=== PATIENT | male | born 1965 | race African-American/Black ===

== ENCOUNTER 2021-11-10 19:36 | Inpatient (IN) | payer OTHER ==
[2021-11-10 20:02] VITALS: BMI 30.7
[2021-11-10] MEDS ORDERED: ACETAMINOPHEN 1000 MG/100 ML BAG IVPB ONE (20:48)
[2021-11-10] MEDS ORDERED: ACETAMINOPHEN INJECTION 100 ML IVPB ONE (21:01)
[2021-11-10 21:47] LABS: EPI CELLS 7 /uL (0-25.1); HYALINE CASTS 5 /uL (0-3.1); URINE APPEARANCE CLEAR; URINE BACTERIA 90 /uL (0-1359); URINE BILIRUBIN NEGATIVE (NEGATIVE); URINE COLOR YELLOW; URINE GLUCOSE (UA) 3+ (NEGATIVE); URINE KETONE NEGATIVE (NEGATIVE); URINE LEUK ESTERASE NEGATIVE (NEGATIVE); URINE NITRITE NEGATIVE (NEGATIVE); URINE PROTEIN 3+ (NEGATIVE); URINE RBC 5 /uL (0-23.9); URINE UROBILINOGEN 0.2 mg/dL (0.2-1.0); URINE WBC 7 /uL (0-25.8)
[2021-11-10 21:59] LABS: BASO % 0.8 % (0-2.0); HEMATOCRIT 41.1 % (35.4-49); HEMOGLOBIN 13.7 GM/dL (11.7-16.9); LYMPH % 9.2 % (8-40); MCH 28.3 pg (25.7-33.7); MCHC 33.4 g/dl (32.0-35.9); MEAN CELL VOLUME 84.7 fl (80-96); MEAN PLT VOLUME 7.9 fl (7.5-11.1); MONO % 15.8 % (3.8-10.2); NEUT % 74.2 % (42.8-82.8); PLATELET COUNT 206 10^3/uL (134-434); RBC 4.85 M/mm3 (4.00-5.60); RDW 16.6 % (11.9-15.9); WHITE BLOOD COUNT 7.7 K/mm3 (4.0-10.0)
[2021-11-10 22:13] LABS: CALCIUM 9.2 mg/dL (8.5-10.1)
[2021-11-10 22:15] LABS: ALBUMIN 3.7 g/dl (3.4-5.0); BLOOD UREA NITROGEN 21.7 mg/dL (7-18)
[2021-11-10 22:18] LABS: CREATININE 1.8 mg/dL (0.55-1.3)
[2021-11-10 22:19] LABS: BILIRUBIN,TOTAL 0.2 mg/dL (0.2-1); TOT PROT 7.7 g/dl (6.4-8.2)
[2021-11-11] MEDS ORDERED: SODIUM CHLORIDE 0.9% 500 ML INFUS.BAG IV ONE (01:22)
[2021-11-11 02:00] LABS: LACTIC ACID 2.8 mmol/L (0.4-2.0)
[2021-11-11] MEDS ORDERED: SODIUM CHLORIDE 1,000 ML IV SCH ×2 (02:30→02:59)
[2021-11-11 03:38] LABS: INR 1.69 (0.83-1.09); PROTHROMBIN TIME (PATIENT) 19.5 SEC (9.7-13.0)
[2021-11-11 04:01] LABS: LACTIC ACID 2.6 mmol/L (0.4-2.0)
[2021-11-11] MEDS ORDERED: SODIUM CHLORIDE 500 ML IV STA (04:08)
[2021-11-11] MEDS ORDERED: LEVOTHYROXINE NA 25 MCG TABLET (FP) ONE (05:59)
[2021-11-11] MEDS: LEVOTHYROXINE NA 25 MCG TABLET (FP) PO SCH (06:02)
[2021-11-11 06:53] LABS: BLOOD UREA NITROGEN 18.3 mg/dL (7-18); CALCIUM 7.9 mg/dL (8.5-10.1)
[2021-11-11 06:54] LABS: ALBUMIN 3.2 g/dl (3.4-5.0)
[2021-11-11 06:55] LABS: EOS % 0.3 % (0-4.5); HEMOGLOBIN 12.5 GM/dL (11.7-16.9); LYMPH % 21.5 % (8-40); MCH 27.5 pg (25.7-33.7); MCHC 32.1 g/dl (32.0-35.9); MEAN CELL VOLUME 85.6 fl (80-96); MEAN PLT VOLUME 8.2 fl (7.5-11.1); MONO % 15.4 % (3.8-10.2); NEUT % 61.8 % (42.8-82.8); PLATELET COUNT 189 10^3/uL (134-434); RBC 4.56 M/mm3 (4.00-5.60); RDW 16.7 % (11.9-15.9); WHITE BLOOD COUNT 5.6 K/mm3 (4.0-10.0)
[2021-11-11 06:56] LABS: CREATININE 1.5 mg/dL (0.55-1.3)
[2021-11-11 06:58] LABS: BILIRUBIN,TOTAL 0.2 mg/dL (0.2-1); TOT PROT 6.8 g/dl (6.4-8.2)
[2021-11-11 07:20] LABS: LACTIC ACID 2.7 mmol/L (0.4-2.0)
[2021-11-11] MEDS ORDERED: TAMSULOSIN HCL 0.4 MG CAP ONE ×2 (08:53→08:54)
[2021-11-11] MEDS: TAMSULOSIN HCL 0.4 MG CAP PO SCH (08:57)
[2021-11-11] MEDS ORDERED: ONDANSETRON 4 MG/2 ML VIAL IVPB PRN (09:49)
[2021-11-11] MEDS ORDERED: AMIODARONE HCL 200 MG TABLET PO SCH (10:00)
[2021-11-11] MEDS: BACLOFEN 10 MG TABLET (FP) PO SCH (11:00)
[2021-11-11] MEDS: APIXABAN 5 MG TABLET PO SCH ×2 (11:01→22:23)
[2021-11-11] MEDS: INSULIN (LEVEMIR) 100 UNITS/ML UNITS SQ SCH (11:05)
[2021-11-11 13:15] LABS: MAGNESIUM 1.7 mg/dL (1.8-2.4)
[2021-11-11 13:23] LABS: N-TERMINAL BNP 83.8 pg/ml (5-125)
[2021-11-11] MEDS ORDERED: POTASSIUM CHLORIDE TABS 20 MEQ TABLET.ER (FP) PO ONE ×2 (13:52→16:00)
[2021-11-11] MEDS ORDERED: MAGNESIUM OXIDE 400 MG TABLET (FP) PO ONE ×2 (13:52→16:00)
[2021-11-11] MEDS: SODIUM CHLORIDE 1,000 ML IV SCH (16:33)
[2021-11-11] MEDS ORDERED: POTASSIUM CHLORIDE ORAL LIQUID 20 MEQ/15 ML PO ONE (16:43)
[2021-11-12] MEDS ORDERED: INSULIN (NOVOLOG) ASPART 100 UNITS/ML 10ML VIAL SQ ONE (00:30)
[2021-11-12] MEDS: LEVOTHYROXINE NA 25 MCG TABLET (FP) PO SCH (06:18)
[2021-11-12] MEDS: SODIUM CHLORIDE 1,000 ML IV SCH ×2 (06:18→17:07)
[2021-11-12 08:11] LABS: BASO % 1.2 % (0-2.0); EOS % 1.9 % (0-4.5); HEMATOCRIT 39.2 % (35.4-49); HEMOGLOBIN 12.6 GM/dL (11.7-16.9); LYMPH % 41.1 % (8-40); MCH 27.3 pg (25.7-33.7); MCHC 32.1 g/dl (32.0-35.9); MEAN PLT VOLUME 8.1 fl (7.5-11.1); MONO % 15.3 % (3.8-10.2); NEUT % 40.5 % (42.8-82.8); PLATELET COUNT 188 10^3/uL (134-434); RBC 4.61 M/mm3 (4.00-5.60); RDW 16.6 % (11.9-15.9); WHITE BLOOD COUNT 3.5 K/mm3 (4.0-10.0)
[2021-11-12 08:31] LABS: ALBUMIN 2.9 g/dl (3.4-5.0); BLOOD UREA NITROGEN 10.4 mg/dL (7-18); CALCIUM 8.2 mg/dL (8.5-10.1)
[2021-11-12 08:34] LABS: CREATININE 1.1 mg/dL (0.55-1.3)
[2021-11-12 08:36] LABS: BILIRUBIN,TOTAL 0.2 mg/dL (0.2-1); TOT PROT 6.5 g/dl (6.4-8.2)
[2021-11-12] MEDS: BACLOFEN 10 MG TABLET (FP) PO SCH (09:51)
[2021-11-12] MEDS: APIXABAN 5 MG TABLET PO SCH ×2 (09:52→21:06)
[2021-11-12] MEDS: INSULIN (LEVEMIR) 100 UNITS/ML UNITS SQ SCH (09:52)
[2021-11-12] MEDS: TAMSULOSIN HCL 0.4 MG CAP PO SCH (09:52)
[2021-11-12] MEDS: INSULIN SLIDING SCALE (NOVOLOG) 1 VIAL SQ SCH ×2 (11:31→17:08)
[2021-11-13 01:07] LABS: FIBROSIS SCORE. 0.32 (0.00-0.21); HCV ALPHA 2 MACRO CHART 314 mg/dL (110-276); NECRO.INFLAM ACT.SCORE 0.92 (0.00-0.17); NECROINFLAM. ACTIVITY GRADE A3-Severe activity (.)
[2021-11-13] MEDS: SODIUM CHLORIDE 1,000 ML IV SCH ×2 (06:21→14:04)
[2021-11-13] MEDS: INSULIN SLIDING SCALE (NOVOLOG) 1 VIAL SQ SCH ×3 (06:22→15:42)
[2021-11-13] MEDS: LEVOTHYROXINE NA 25 MCG TABLET (FP) PO SCH (06:22)
[2021-11-13 07:23] LABS: BASO % 0.8 % (0-2.0); EOS % 2.9 % (0-4.5); HEMATOCRIT 36.9 % (35.4-49); HEMOGLOBIN 12.4 GM/dL (11.7-16.9); LYMPH % 54.1 % (8-40); MCH 28.1 pg (25.7-33.7); MCHC 33.6 g/dl (32.0-35.9); MEAN CELL VOLUME 83.7 fl (80-96); MEAN PLT VOLUME 7.8 fl (7.5-11.1); MONO % 11.5 % (3.8-10.2); NEUT % 30.7 % (42.8-82.8); PLATELET COUNT 178 10^3/uL (134-434); RBC 4.41 M/mm3 (4.00-5.60); RDW 16.9 % (11.9-15.9); WHITE BLOOD COUNT 3.2 K/mm3 (4.0-10.0)
[2021-11-13 07:43] LABS: CHLORIDE 104 mmol/L (98-107); SODIUM 135 mmol/L (136-145)
[2021-11-13 07:48] LABS: ALBUMIN 2.9 g/dl (3.4-5.0); ANION GAP 5 MMOL/L (8-16); BLOOD UREA NITROGEN 7.9 mg/dL (7-18); CALCIUM 8.2 mg/dL (8.5-10.1); CO2 27 mmol/L (21-32); GLUCOSE,RANDOM 218 mg/dL (74-106)
[2021-11-13 07:52] LABS: BILIRUBIN,TOTAL 0.4 mg/dL (0.2-1); SGOT/AST 110 U/L (15-37); SGPT/ALT 230 U/L (13-61); TOT PROT 6.3 g/dl (6.4-8.2)
[2021-11-13 07:54] LABS: ALK PHOS 119 U/L (45-117)
[2021-11-13] MEDS: APIXABAN 5 MG TABLET PO SCH ×2 (09:44→21:16)
[2021-11-13] MEDS: BACLOFEN 10 MG TABLET (FP) PO SCH (09:44)
[2021-11-13] MEDS: INSULIN (LEVEMIR) 100 UNITS/ML UNITS SQ SCH (09:45)
[2021-11-13] MEDS: TAMSULOSIN HCL 0.4 MG CAP PO SCH (09:53)
[2021-11-13] MEDS ORDERED: INSULIN (NOVOLOG) ASPART 100 UNITS/ML 10ML VIAL ONE (21:21)
[2021-11-14] MEDS: SODIUM CHLORIDE 1,000 ML IV SCH ×2 (02:20→16:07)
[2021-11-14] MEDS: LEVOTHYROXINE NA 25 MCG TABLET (FP) PO SCH (06:05)
[2021-11-14] MEDS: INSULIN SLIDING SCALE (NOVOLOG) 1 VIAL SQ SCH ×3 (06:05→16:15)
[2021-11-14 08:55] LABS: INR 1.22 (0.83-1.09); PROTHROMBIN TIME (PATIENT) 14.1 SEC (9.7-13.0)
[2021-11-14 08:58] LABS: BASO % 0.7 % (0-2.0); EOS % 2.3 % (0-4.5); HEMATOCRIT 41.7 % (35.4-49); HEMOGLOBIN 13.6 GM/dL (11.7-16.9); MCH 27.6 pg (25.7-33.7); MCHC 32.7 g/dl (32.0-35.9); MEAN CELL VOLUME 84.5 fl (80-96); MEAN PLT VOLUME 8.2 fl (7.5-11.1); MONO % 11.4 % (3.8-10.2); NEUT % 36.6 % (42.8-82.8); PLATELET COUNT 215 10^3/uL (134-434); RBC 4.93 M/mm3 (4.00-5.60); RDW 16.6 % (11.9-15.9); WHITE BLOOD COUNT 4.5 K/mm3 (4.0-10.0)
[2021-11-14 09:16] LABS: ALBUMIN 3.2 g/dl (3.4-5.0); BLOOD UREA NITROGEN 11.1 mg/dL (7-18); CALCIUM 8.6 mg/dL (8.5-10.1)
[2021-11-14 09:19] LABS: BILIRUBIN,DIRECT 0.1 mg/dL (0.0-0.2)
[2021-11-14 09:21] LABS: CREATININE 1.1 mg/dL (0.55-1.3)
[2021-11-14 09:23] LABS: BILIRUBIN,TOTAL 0.5 mg/dL (0.2-1); TOT PROT 7.2 g/dl (6.4-8.2)
[2021-11-14] MEDS: TAMSULOSIN HCL 0.4 MG CAP PO SCH (10:28)
[2021-11-14] MEDS: INSULIN (LEVEMIR) 100 UNITS/ML UNITS SQ SCH (10:28)
[2021-11-14] MEDS: APIXABAN 5 MG TABLET PO SCH (10:28)
[2021-11-14] MEDS: BACLOFEN 10 MG TABLET (FP) PO SCH (10:28)
[2021-11-14 14:00] VITALS: BP 128/77; PULSE 74; TEMP 98.2
== END 2021-11-14 16:30 | disposition home or self-care (01) | DRG 683 ==
LOC: JER 19:36 → JERBED 11-11 01:54 → J7W 11-11 09:14
PROVIDERS: ADMIT Internal Medicine; ATTEND Internal Medicine
DX: N17.9 Acute kidney failure, unspecified (principal); E87.2 Acidosis; M62.82 Rhabdomyolysis; I48.91 Unspecified atrial fibrillation; I10 Essential (primary) hypertension; E87.6 Hypokalemia; E11.9 Type 2 diabetes mellitus without complications; N40.0 Benign prostatic hyperplasia without lower urinary tract symptoms; E66.9 Obesity, unspecified; K76.0 Fatty (change of) liver, not elsewhere classified; Z68.30 Body mass index [BMI] 30.0-30.9, adult; R74.01 Elevation of levels of liver transaminase levels
CPT/HCPCS: 36415; 71045-TC-FY; 72131-TC; 76705-TC; 76775-TC; 80048; 80053; 80076; 81003; 82172; 82550; 82553; 82570; 82962; 82977; 83010; 83036; 83540; 83550; 83605; 83615; 83735; 83880; 83883; 84155; 84156; 84165; 84443; 84460; 84484; 85025; 85610; 85730; 86038; 86704; 86705; 86708; 86803; 87340; 87350; 93005; 93010; 93306-TC; 97116-GP; 97161-GP; 99285-25; C9803-CS; J0475; U0003; U0005

== ENCOUNTER 2021-11-15 20:35 | Observation (INO) | payer OTHER ==
[2021-11-15 22:41] LABS: VENOUS BASE EXCESS -3.5 mmol/L (-2-2); VENOUS O2 SATURATION 88.5 % (70-80); VENOUS PCO2 36.4 mmHg (38-52); VENOUS PH 7.378 (7.310-7.410)
[2021-11-15 22:50] LABS: EOS % 1.5 % (0-4.5); HEMATOCRIT 42.8 % (35.4-49); HEMOGLOBIN 14.2 GM/dL (11.7-16.9); LYMPH % 42.5 % (8-40); MCH 27.8 pg (25.7-33.7); MCHC 33.3 g/dl (32.0-35.9); MEAN CELL VOLUME 83.5 fl (80-96); MONO % 9.5 % (3.8-10.2); NEUT % 45.5 % (42.8-82.8); PLATELET COUNT 226 10^3/uL (134-434); RBC 5.13 M/mm3 (4.00-5.60); RDW 16.2 % (11.9-15.9); WHITE BLOOD COUNT 7.1 K/mm3 (4.0-10.0)
[2021-11-15 23:10] LABS: CALCIUM 8.9 mg/dL (8.5-10.1)
[2021-11-15 23:11] LABS: ALBUMIN 3.4 g/dl (3.4-5.0); BLOOD UREA NITROGEN 16.7 mg/dL (7-18)
[2021-11-15 23:14] LABS: CREATININE 1.6 mg/dL (0.55-1.3)
[2021-11-15 23:15] LABS: BILIRUBIN,TOTAL 0.2 mg/dL (0.2-1); TOT PROT 7.6 g/dl (6.4-8.2)
[2021-11-15 23:16] LABS: EPI CELLS 1 /uL (0-25.1); HYALINE CASTS 0 /uL (0-3.1); URINE APPEARANCE CLEAR; URINE BACTERIA 18 /uL (0-1359); URINE BILIRUBIN NEGATIVE (NEGATIVE); URINE COLOR YELLOW; URINE GLUCOSE (UA) 3+ (NEGATIVE); URINE KETONE NEGATIVE (NEGATIVE); URINE LEUK ESTERASE NEGATIVE (NEGATIVE); URINE NITRITE NEGATIVE (NEGATIVE); URINE PROTEIN 2+ (NEGATIVE); URINE RBC 2 /uL (0-23.9); URINE UROBILINOGEN 0.2 mg/dL (0.2-1.0); URINE WBC 4 /uL (0-25.8)
[2021-11-16] MEDS ORDERED: LACTATED RINGERS SOLUTION 1000 ML INFUS.BAG IV ONE (00:45)
[2021-11-16] MEDS ORDERED: ACETAMINOPHEN 325 MG TABLET (FP) PO PRN ×2 (00:49→06:01)
[2021-11-16] MEDS ORDERED: POLYETHYLENE GLYCOL (HEALTHYLAX) 3350 17 GM PACKET PO PRN (00:49)
[2021-11-16] MEDS: APIXABAN 5 MG TABLET PO SCH ×3 (03:33→21:11)
[2021-11-16 04:02] VITALS: BMI 30.8
[2021-11-16] MEDS ORDERED: HEPARIN NA (PORCINE) 5,000 UNITS/ML 1ML VIAL SQ SCH (06:00)
[2021-11-16] MEDS: LEVOTHYROXINE NA 25 MCG TABLET (FP) PO SCH (06:13)
[2021-11-16] MEDS: INSULIN SLIDING SCALE (NOVOLOG) 1 VIAL SQ SCH ×4 (06:15→21:11)
[2021-11-16] MEDS: SODIUM CHLORIDE 1,000 ML IV SCH ×2 (06:36→19:34)
[2021-11-16 09:43] LABS: BLOOD UREA NITROGEN 16.5 mg/dL (7-18); CALCIUM 8.4 mg/dL (8.5-10.1)
[2021-11-16 09:46] LABS: CREATININE 1.2 mg/dL (0.55-1.3)
[2021-11-16 09:48] LABS: BILIRUBIN,TOTAL 0.3 mg/dL (0.2-1); TOT PROT 6.6 g/dl (6.4-8.2)
[2021-11-16] MEDS: TAMSULOSIN HCL 0.4 MG CAP PO SCH (09:58)
[2021-11-16] MEDS: BACLOFEN 10 MG TABLET (FP) PO SCH (09:58)
[2021-11-16] MEDS ORDERED: HYDROCHLOROTHIAZIDE 25 MG TABLET (FP) PO SCH (10:00)
[2021-11-16] MEDS ORDERED: PATIENT'S OWN MEDICATION (NON-FORMULARY) (Insulin Glargine,Hum.Rec.Anlog [Basaglar Kwikpen SQ SCH (10:00)
[2021-11-16] MEDS ORDERED: AMIODARONE HCL 200 MG TABLET PO SCH (10:00)
[2021-11-16] MEDS: INSULIN (LEVEMIR) 100 UNITS/ML UNITS SQ SCH (11:25)
[2021-11-16] MEDS ORDERED: INSULIN (LEVEMIR) 100 UNITS/ML UNITS SQ ONE (11:56)
[2021-11-16] MEDS: NYSTATIN POWDER 100,000 UNITS/GM - 15 GM TOPICAL POWDER TP SCH ×2 (16:08→21:10)
[2021-11-16] MEDS ORDERED: INSULIN (NOVOLOG) ASPART 100 UNITS/ML 10ML VIAL ONE (20:35)
[2021-11-16] MEDS ORDERED: ROSUVASTATIN CA 10 MG TABLET PO SCH (22:00)
[2021-11-17] MEDS: SODIUM CHLORIDE 1,000 ML IV SCH (06:07)
[2021-11-17] MEDS: INSULIN (LEVEMIR) 100 UNITS/ML UNITS SQ SCH (06:12)
[2021-11-17] MEDS: LEVOTHYROXINE NA 25 MCG TABLET (FP) PO SCH (06:13)
[2021-11-17] MEDS: INSULIN SLIDING SCALE (NOVOLOG) 1 VIAL SQ SCH ×4 (06:13→22:43)
[2021-11-17] MEDS: TAMSULOSIN HCL 0.4 MG CAP PO SCH (08:33)
[2021-11-17] MEDS: NYSTATIN POWDER 100,000 UNITS/GM - 15 GM TOPICAL POWDER TP SCH ×2 (09:37→22:43)
[2021-11-17] MEDS: APIXABAN 5 MG TABLET PO SCH ×2 (09:38→22:42)
[2021-11-17] MEDS: BACLOFEN 10 MG TABLET (FP) PO SCH (09:38)
[2021-11-17 11:22] LABS: BASO % 0.6 % (0-2.0); HEMATOCRIT 37.8 % (35.4-49); HEMOGLOBIN 12.4 GM/dL (11.7-16.9); LYMPH % 29.4 % (8-40); MCH 27.5 pg (25.7-33.7); MCHC 32.7 g/dl (32.0-35.9); MEAN CELL VOLUME 84.1 fl (80-96); MEAN PLT VOLUME 7.9 fl (7.5-11.1); MONO % 8.7 % (3.8-10.2); NEUT % 58.3 % (42.8-82.8); PLATELET COUNT 230 10^3/uL (134-434); RDW 16.6 % (11.9-15.9); WHITE BLOOD COUNT 5.5 K/mm3 (4.0-10.0)
[2021-11-17 11:44] LABS: ACTIVATED PTT 28.6 SECONDS (25.2-36.5); INR 1.24 (0.83-1.09); PROTHROMBIN TIME (PATIENT) 14.3 SEC (9.7-13.0)
[2021-11-17 12:05] LABS: BLOOD UREA NITROGEN 11.2 mg/dL (7-18); CALCIUM 8.3 mg/dL (8.5-10.1); CREATININE 1.2 mg/dL (0.55-1.3); MAGNESIUM 1.8 mg/dL (1.8-2.4)
[2021-11-17] MEDS ORDERED: INSULIN (LEVEMIR) 100 UNITS/ML UNITS SQ SCH (14:50)
[2021-11-18] MEDS: LEVOTHYROXINE NA 25 MCG TABLET (FP) PO SCH (06:10)
[2021-11-18] MEDS: INSULIN SLIDING SCALE (NOVOLOG) 1 VIAL SQ SCH ×2 (06:16→11:18)
[2021-11-18 09:02] VITALS: BP 146/87; PULSE 76; TEMP 98.4
[2021-11-18] MEDS: TAMSULOSIN HCL 0.4 MG CAP PO SCH (09:02)
[2021-11-18] MEDS: NYSTATIN POWDER 100,000 UNITS/GM - 15 GM TOPICAL POWDER TP SCH (09:03)
[2021-11-18] MEDS: BACLOFEN 10 MG TABLET (FP) PO SCH (09:03)
[2021-11-18] MEDS: APIXABAN 5 MG TABLET PO SCH (09:03)
[2021-11-18 09:34] LABS: BASO % 0.7 % (0-2.0); HEMATOCRIT 39.3 % (35.4-49); HEMOGLOBIN 13.1 GM/dL (11.7-16.9); MCH 28.1 pg (25.7-33.7); MCHC 33.5 g/dl (32.0-35.9); MEAN CELL VOLUME 83.9 fl (80-96); MEAN PLT VOLUME 7.6 fl (7.5-11.1); MONO % 8.5 % (3.8-10.2); NEUT % 60.8 % (42.8-82.8); PLATELET COUNT 255 10^3/uL (134-434); RBC 4.68 M/mm3 (4.00-5.60); RDW 16.7 % (11.9-15.9); WHITE BLOOD COUNT 6.1 K/mm3 (4.0-10.0)
[2021-11-18 12:37] LABS: CALCIUM 8.9 mg/dL (8.5-10.1)
[2021-11-18 12:38] LABS: ALBUMIN 3.2 g/dl (3.4-5.0); BLOOD UREA NITROGEN 11.9 mg/dL (7-18)
[2021-11-18 12:41] LABS: CREATININE 1.1 mg/dL (0.55-1.3)
[2021-11-18 12:43] LABS: BILIRUBIN,TOTAL 0.4 mg/dL (0.2-1)
== END 2021-11-18 11:29 ==
LOC: JER 20:35 → JERBED 11-16 00:01 → J6S 11-16 03:08
PROVIDERS: ADMIT Hospitalist; ATTEND Internal Medicine
PROC: 3E013VG Introduction of Insulin into Subcutaneous Tissue, Percutaneous Approach (ICD-10-PCS; principal; 2021-11-16)
PROC: 3E0337Z Introduction of Electrolytic and Water Balance Substance into Peripheral Vein, Percutaneous Approach (ICD-10-PCS; 2021-11-16)
DX: E11.65 Type 2 diabetes mellitus with hyperglycemia (principal); N17.9 Acute kidney failure, unspecified; E78.5 Hyperlipidemia, unspecified; R74.01 Elevation of levels of liver transaminase levels; E03.9 Hypothyroidism, unspecified; I73.9 Peripheral vascular disease, unspecified; Z89.612 Acquired absence of left leg above knee; Z89.611 Acquired absence of right leg above knee; E66.9 Obesity, unspecified; Z68.30 Body mass index [BMI] 30.0-30.9, adult; Z87.891 Personal history of nicotine dependence
CPT/HCPCS: 36415; 71046-TC-FY; 80048; 80053; 81003; 82010; 82803; 82962; 83735; 84443; 85025; 85610; 85730; 87077; 87086; 93005; 93010; 96360; 96372; 99285-25; C9803-CS; G0378; J0475; U0003; U0005

== ENCOUNTER 2022-05-27 14:43 | Emergency (ER) | payer OTHER ==
[2022-05-27 15:01] VITALS: RESP 20; BMI 31.1
[2022-05-27 16:41] LABS: VENOUS O2 SATURATION 96.8 % (70-80); VENOUS PCO2 34.4 mmHg (38-52); VENOUS PH 7.464 (7.310-7.410)
[2022-05-27 16:46] LABS: BASO % 0.8 % (0-2.0); EOS % 2.8 % (0-4.5); HEMATOCRIT 40.9 % (35.4-49); HEMOGLOBIN 13.1 GM/dL (11.7-16.9); LYMPH % 34.1 % (8-40); MCH 27.8 pg (25.7-33.7); MEAN CELL VOLUME 86.9 fl (80-96); MEAN PLT VOLUME 8.4 fl (7.5-11.1); MONO % 6.6 % (3.8-10.2); NEUT % 55.7 % (42.8-82.8); PLATELET COUNT 277 10^3/uL (134-434); RBC 4.71 M/mm3 (4.00-5.60); RDW 16.4 % (11.9-15.9); WHITE BLOOD COUNT 9.7 K/mm3 (4.0-10.0)
[2022-05-27 17:07] LABS: CHLORIDE 104 mmol/L (98-107); SODIUM 135 mmol/L (136-145)
[2022-05-27 17:12] LABS: ALBUMIN 3.2 g/dl (3.4-5.0); CALCIUM 9.6 mg/dL (8.5-10.1); GLUCOSE,RANDOM 252 mg/dL (74-106)
[2022-05-27 17:13] LABS: BLOOD UREA NITROGEN 12.9 mg/dL (7-18); CO2 24 mmol/L (21-32); MAGNESIUM 1.7 mg/dL (1.8-2.4)
[2022-05-27 17:15] LABS: CREATININE 1.3 mg/dL (0.55-1.3); PHOSPHOROUS 3.2 mg/dL (2.5-4.9); SGOT/AST 97 U/L (15-37); SGPT/ALT 72 U/L (13-61)
[2022-05-27 17:16] LABS: BILIRUBIN,TOTAL 0.3 mg/dL (0.2-1)
[2022-05-27 17:17] LABS: TOT PROT 7.8 g/dl (6.4-8.2)
[2022-05-27 17:18] VITALS: BP 131/80; PULSE 78; TEMP 98.6
[2022-05-27 17:18] LABS: ALK PHOS 192 U/L (45-117)
[2022-05-27 17:24] LABS: ANION GAP 7 MMOL/L (8-16); LACTIC ACID 2.9 mmol/L (0.4-2.0)
[2022-05-27 17:30] LABS: EPI CELLS 8 /uL (0-25.1); HYALINE CASTS 15 /uL (0-3.1); PH,URINE 5.5 (5.0-8.0); URINE APPEARANCE CLEAR; URINE BACTERIA >9,000 /uL (0-1359); URINE BILIRUBIN NEGATIVE (NEGATIVE); URINE COLOR YELLOW; URINE GLUCOSE (UA) 3+ (NEGATIVE); URINE KETONE TRACE (NEGATIVE); URINE LEUK ESTERASE NEGATIVE (NEGATIVE); URINE NITRITE NEGATIVE (NEGATIVE); URINE PROTEIN 3+ (NEGATIVE); URINE RBC 1 /uL (0-23.9); URINE UROBILINOGEN 0.2 mg/dL (0.2-1.0); URINE WBC 26 /uL (0-25.8)
[2022-05-27] MEDS ORDERED: LACTATED RINGERS SOLUTION 1000 ML INFUS.BAG IV ONE (17:32)
[2022-05-27] MEDS ORDERED: cefTRIAXone SODIUM 1 GM VIAL ONE (18:00)
[2022-05-27 20:38] LABS: CALCIUM 9.1 mg/dL (8.5-10.1)
[2022-05-27 20:39] LABS: BLOOD UREA NITROGEN 11.8 mg/dL (7-18)
[2022-05-27 20:42] LABS: CREATININE 1.1 mg/dL (0.55-1.3)
[2022-05-27 21:00] LABS: LACTIC ACID 2.4 mmol/L (0.4-2.0)
== END 2022-05-28 01:23 | disposition home or self-care (01) ==
LOC: JER 14:43
PROC: 3E033GC Introduction of Other Therapeutic Substance into Peripheral Vein, Percutaneous Approach (ICD-10-PCS; principal; 2022-05-27)
DX: E11.65 Type 2 diabetes mellitus with hyperglycemia (principal)
CPT/HCPCS: 36415; 71045-TC-FY; 80048; 80053; 81003; 82010; 82803; 82962; 83605; 83735; 84100; 84484; 85025; 93005; 93010; 99285-25

== ENCOUNTER 2022-08-08 10:57 | Inpatient (IN) | payer OTHER ==
[2022-08-08 11:36] VITALS: BMI 32.1
[2022-08-08] MEDS ORDERED: ACETAMINOPHEN 1000 MG/100 ML BAG IVPB ONE (11:54)
[2022-08-08] MEDS ORDERED: ONDANSETRON 4 MG/2 ML VIAL IVPUSH ONE (11:54)
[2022-08-08] MEDS ORDERED: SODIUM CHLORIDE 1,000 ML IV STA ×2 (11:54→14:28)
[2022-08-08] MEDS ORDERED: ONDANSETRON 4 MG/2 ML VIAL ONE (12:38)
[2022-08-08] MEDS ORDERED: ACETAMINOPHEN INJECTION 100 ML IVPB ONE (12:38)
[2022-08-08 13:44] LABS: BASO % 0.1 % (0-2.0); EOS % 0.1 % (0-4.5); HEMATOCRIT 51.3 % (35.4-49); HEMOGLOBIN 16.2 GM/dL (11.7-16.9); LYMPH % 5.9 % (8-40); MCH 27.2 pg (25.7-33.7); MCHC 31.6 g/dl (32.0-35.9); MEAN PLT VOLUME 8.5 fl (7.5-11.1); MONO % 4.1 % (3.8-10.2); NEUT % 89.8 % (42.8-82.8); PLATELET COUNT 225 10^3/uL (134-434); RBC 5.97 M/mm3 (4.00-5.60); RDW 16.3 % (11.9-15.9); WHITE BLOOD COUNT 17.9 K/mm3 (4.0-10.0)
[2022-08-08 13:46] LABS: VENOUS BASE EXCESS -0.7 mmol/L (-2-2); VENOUS O2 SATURATION 60.6 % (70-80); VENOUS PCO2 38.8 mmHg (38-52); VENOUS PH 7.404 (7.310-7.410)
[2022-08-08 13:48] LABS: EPI CELLS 1 /uL (0-25.1); HYALINE CASTS 0 /uL (0-3.1); URINE APPEARANCE CLEAR; URINE BACTERIA 4 /uL (0-1359); URINE BILIRUBIN NEGATIVE (NEGATIVE); URINE COLOR YELLOW; URINE GLUCOSE (UA) 3+ (NEGATIVE); URINE KETONE TRACE (NEGATIVE); URINE LEUK ESTERASE NEGATIVE (NEGATIVE); URINE NITRITE NEGATIVE (NEGATIVE); URINE PROTEIN 2+ (NEGATIVE); URINE RBC 5 /uL (0-23.9); URINE UROBILINOGEN 0.2 mg/dL (0.2-1.0); URINE WBC 3 /uL (0-25.8)
[2022-08-08 13:52] LABS: INR 1.3 (0.83-1.09)
[2022-08-08 13:54] LABS: ACTIVATED PTT 33.2 SECONDS (25.2-36.5)
[2022-08-08 14:05] LABS: CHLORIDE 96 mmol/L (98-107); SODIUM 133 mmol/L (136-145)
[2022-08-08 14:07] LABS: ALBUMIN 3.7 g/dl (3.4-5.0); BLOOD UREA NITROGEN 18.7 mg/dL (7-18); CALCIUM 9.4 mg/dL (8.5-10.1); CO2 23 mmol/L (21-32)
[2022-08-08] MEDS ORDERED: PIPERACILLIN/TAZOB 4.5 GM 4.5 GM in DEXTROSE 5%-WATER 100 ML IVPB ONE (14:09)
[2022-08-08] MEDS ORDERED: VANCOMYCIN 1 GM in D5W (PRE-DOCKED) 1,000 MG/250 ML IVPB ONE (14:09)
[2022-08-08 14:10] LABS: CREATININE 1.9 mg/dL (0.55-1.3); SGPT/ALT 102 U/L (13-61)
[2022-08-08 14:11] LABS: SGOT/AST 142 U/L (15-37)
[2022-08-08 14:12] LABS: BILIRUBIN,TOTAL 0.6 mg/dL (0.2-1)
[2022-08-08 14:13] LABS: ALK PHOS 204 U/L (45-117)
[2022-08-08 14:15] LABS: ANION GAP 13 MMOL/L (8-16); GLUCOSE,RANDOM 410 mg/dL (74-106)
[2022-08-08 14:15] LABS: LACTIC ACID 4.3 mmol/L (0.4-2.0)
[2022-08-08] MEDS ORDERED: PIPERACILLIN/TAZOB 4.5 GM 4.5 GM/100 ML BAG IVPB ONE ×2 (14:41→22:19)
[2022-08-08] MEDS ORDERED: VANCOMYCIN/WATER FOR INJ (PEG) 1,000 MG/200 ML BAG IVPB ONE (14:41)
[2022-08-08 17:21] LABS: BLOOD UREA NITROGEN 17.6 mg/dL (7-18); CALCIUM 8.6 mg/dL (8.5-10.1)
[2022-08-08 17:25] LABS: CREATININE 1.5 mg/dL (0.55-1.3)
[2022-08-08] MEDS ORDERED: INSULIN (NOVOLOG) ASPART 100 UNITS/ML 10ML VIAL SQ ONE (17:40)
[2022-08-08] MEDS ORDERED: SODIUM CHLORIDE 500 ML IV STA (21:36)
[2022-08-08] MEDS: INSULIN SLIDING SCALE (NOVOLOG) 1 VIAL SQ SCH (22:31)
[2022-08-08] MEDS: SODIUM CHLORIDE 1,000 ML IV SCH (23:57)
[2022-08-08] MEDS: VANCOMYCIN PREMIX 1.5 GM 1,500 MG/300 ML BAG IVPB SCH (23:57)
[2022-08-09 02:11] LABS: LACTIC ACID 2.1 mmol/L (0.4-2.0)
[2022-08-09 07:05] LABS: BASO % 0.4 % (0-2.0); EOS % 0.6 % (0-4.5); HEMATOCRIT 41.3 % (35.4-49); LYMPH % 14.1 % (8-40); MCH 27.1 pg (25.7-33.7); MCHC 31.6 g/dl (32.0-35.9); MEAN PLT VOLUME 8.2 fl (7.5-11.1); MONO % 5.5 % (3.8-10.2); NEUT % 79.4 % (42.8-82.8); PLATELET COUNT 242 10^3/uL (134-434)
[2022-08-09 07:25] LABS: BLOOD UREA NITROGEN 13.2 mg/dL (7-18); CALCIUM 8.1 mg/dL (8.5-10.1); MAGNESIUM 1.6 mg/dL (1.8-2.4)
[2022-08-09 07:28] LABS: CREATININE 1.3 mg/dL (0.55-1.3); PHOSPHOROUS 1.8 mg/dL (2.5-4.9)
[2022-08-09 07:30] LABS: BILIRUBIN,TOTAL 0.8 mg/dL (0.2-1)
[2022-08-09 08:07] LABS: TOT PROT 6.8 g/dl (6.4-8.2)
[2022-08-09] MEDS: INSULIN SLIDING SCALE (NOVOLOG) 1 VIAL SQ SCH ×4 (09:00→22:12)
[2022-08-09] MEDS ORDERED: LEVOTHYROXINE NA 25 MCG TABLET (FP) ONE (10:23)
[2022-08-09] MEDS ORDERED: TAMSULOSIN HCL 0.4 MG CAP ONE (10:23)
[2022-08-09] MEDS ORDERED: APIXABAN 5 MG TABLET ONE (10:23)
[2022-08-09] MEDS ORDERED: GABAPENTIN 300 MG CAPSULE ONE (10:24)
[2022-08-09] MEDS ORDERED: BACLOFEN 10 MG TABLET (FP) ONE (10:24)
[2022-08-09] MEDS: TAMSULOSIN HCL 0.4 MG CAP PO SCH (10:25)
[2022-08-09] MEDS: LEVOTHYROXINE NA 25 MCG TABLET (FP) PO SCH (10:25)
[2022-08-09] MEDS: VANCOMYCIN PREMIX 1.5 GM 1,500 MG/300 ML BAG IVPB SCH (10:26)
[2022-08-09] MEDS: APIXABAN 5 MG TABLET PO SCH ×2 (10:26→21:53)
[2022-08-09] MEDS: GABAPENTIN 300 MG CAPSULE PO SCH ×2 (10:26→21:53)
[2022-08-09] MEDS: BACLOFEN 10 MG TABLET (FP) PO SCH (10:26)
[2022-08-09] MEDS ORDERED: ONDANSETRON *ODT* 4 MG TABLET SL ONE (10:43)
[2022-08-09] MEDS: NYSTATIN POWDER 100,000 UNITS/GM - 15 GM TOPICAL POWDER TP SCH ×2 (10:44→22:56)
[2022-08-09] MEDS ORDERED: CEFTRIAXONE 1 GM in DEXTROSE 5%-WATER - 50 ML IVPB SCH (13:15)
[2022-08-09] MEDS ORDERED: AZITHROMYCIN IVPB 500 MG/250 ML BAG IVPB ONE ×2 (13:30→13:41)
[2022-08-09] MEDS ORDERED: CEFTRIAXONE 1 GM/50 ML BAG ONE (13:41)
[2022-08-09] MEDS: SODIUM CHLORIDE 1,000 ML IV SCH (21:53)
[2022-08-09] MEDS ORDERED: PNEUMOC 20-VAL CONJ-DIP CRM/PF 0.5 ML SYRINGE IM ONE (22:00)
[2022-08-09] MEDS ORDERED: INSULIN (LEVEMIR) 100 UNITS/ML UNITS SQ SCH (22:00)
[2022-08-09] MEDS: PIPERACILLIN/TAZOB 4.5 GM 4.5 GM in DEXTROSE 5%-WATER 100 ML IVPB SCH (22:38)
[2022-08-10] MEDS: PIPERACILLIN/TAZOB 4.5 GM 4.5 GM in DEXTROSE 5%-WATER 100 ML IVPB SCH ×2 (03:09→11:05)
[2022-08-10] MEDS: INSULIN SLIDING SCALE (NOVOLOG) 1 VIAL SQ SCH ×4 (06:19→22:03)
[2022-08-10] MEDS: LEVOTHYROXINE NA 25 MCG TABLET (FP) PO SCH (06:19)
[2022-08-10] MEDS: TAMSULOSIN HCL 0.4 MG CAP PO SCH (07:59)
[2022-08-10 08:11] LABS: BASO % 0.2 % (0-2.0); EOS % 2.1 % (0-4.5); HEMATOCRIT 38.5 % (35.4-49); HEMOGLOBIN 12.3 GM/dL (11.7-16.9); LYMPH % 20.5 % (8-40); MCH 27.2 pg (25.7-33.7); MEAN CELL VOLUME 85.1 fl (80-96); MONO % 8.4 % (3.8-10.2); NEUT % 68.8 % (42.8-82.8); PLATELET COUNT 223 10^3/uL (134-434); RBC 4.52 M/mm3 (4.00-5.60); RDW 15.8 % (11.9-15.9); WHITE BLOOD COUNT 10.9 K/mm3 (4.0-10.0)
[2022-08-10 08:24] LABS: ALBUMIN 2.8 g/dl (3.4-5.0); BLOOD UREA NITROGEN 9.1 mg/dL (7-18); CALCIUM 8.6 mg/dL (8.5-10.1); MAGNESIUM 1.7 mg/dL (1.8-2.4)
[2022-08-10 08:29] LABS: BILIRUBIN,TOTAL 0.7 mg/dL (0.2-1); TOT PROT 6.5 g/dl (6.4-8.2)
[2022-08-10] MEDS: BACLOFEN 10 MG TABLET (FP) PO SCH (09:59)
[2022-08-10] MEDS: APIXABAN 5 MG TABLET PO SCH ×2 (09:59→21:56)
[2022-08-10] MEDS: GABAPENTIN 300 MG CAPSULE PO SCH ×2 (09:59→21:57)
[2022-08-10] MEDS: CEFTRIAXONE 1 GM in DEXTROSE 5%-WATER - 50 ML IVPB SCH (10:00)
[2022-08-10] MEDS: NYSTATIN POWDER 100,000 UNITS/GM - 15 GM TOPICAL POWDER TP SCH ×2 (10:00→22:04)
[2022-08-10] MEDS ORDERED: AZITHROMYCIN IVPB 250 MG in DEXTROSE 5%-WATER - 250 ML IVPB SCH (10:00)
[2022-08-10] MEDS ORDERED: SODIUM CHLORIDE 1,000 ML IV SCH (20:50)
[2022-08-10] MEDS ORDERED: INSULIN (LEVEMIR) 100 UNITS/ML UNITS SQ SCH (22:00)
[2022-08-11] MEDS: LEVOTHYROXINE NA 25 MCG TABLET (FP) PO SCH (06:32)
[2022-08-11] MEDS: INSULIN SLIDING SCALE (NOVOLOG) 1 VIAL SQ SCH ×4 (06:38→22:39)
[2022-08-11] MEDS: APIXABAN 5 MG TABLET PO SCH ×2 (09:25→22:32)
[2022-08-11] MEDS: GABAPENTIN 300 MG CAPSULE PO SCH ×2 (09:25→22:31)
[2022-08-11] MEDS: BACLOFEN 10 MG TABLET (FP) PO SCH (09:25)
[2022-08-11] MEDS: TAMSULOSIN HCL 0.4 MG CAP PO SCH (09:25)
[2022-08-11] MEDS: CEFTRIAXONE 1 GM in DEXTROSE 5%-WATER - 50 ML IVPB SCH (09:26)
[2022-08-11] MEDS: AZITHROMYCIN IVPB 250 MG in DEXTROSE 5%-WATER - 250 ML IVPB SCH (09:26)
[2022-08-11] MEDS: NYSTATIN POWDER 100,000 UNITS/GM - 15 GM TOPICAL POWDER TP SCH ×2 (09:33→22:39)
[2022-08-11 11:24] LABS: BASO % 0.7 % (0-2.0); EOS % 2.2 % (0-4.5); HEMATOCRIT 38.9 % (35.4-49); HEMOGLOBIN 12.7 GM/dL (11.7-16.9); LYMPH % 23.9 % (8-40); MCH 27.6 pg (25.7-33.7); MCHC 32.7 g/dl (32.0-35.9); MEAN CELL VOLUME 84.2 fl (80-96); MEAN PLT VOLUME 8.1 fl (7.5-11.1); MONO % 7.7 % (3.8-10.2); NEUT % 65.5 % (42.8-82.8); PLATELET COUNT 254 10^3/uL (134-434); RBC 4.62 M/mm3 (4.00-5.60); RDW 16.1 % (11.9-15.9); WHITE BLOOD COUNT 10.3 K/mm3 (4.0-10.0)
[2022-08-11 12:20] LABS: ALBUMIN 2.8 g/dl (3.4-5.0)
[2022-08-11 12:26] LABS: BILIRUBIN,TOTAL 0.3 mg/dL (0.2-1)
[2022-08-11] MEDS ORDERED: INSULIN (LEVEMIR) 100 UNITS/ML UNITS SQ SCH (15:41)
[2022-08-11] MEDS: VANCOMYCIN HCL 1,500 MG in DEXTROSE 5%-WATER - 250 ML IVPB SCH ×2 (17:40→18:58)
[2022-08-11] MEDS: PIPERACILLIN/TAZOB 4.5 GM 4.5 GM in DEXTROSE 5%-WATER 100 ML IVPB SCH ×4 (17:40→18:58)
[2022-08-12] MEDS: INSULIN SLIDING SCALE (NOVOLOG) 1 VIAL SQ SCH ×3 (06:35→16:44)
[2022-08-12] MEDS: LEVOTHYROXINE NA 25 MCG TABLET (FP) PO SCH (06:35)
[2022-08-12] MEDS: TAMSULOSIN HCL 0.4 MG CAP PO SCH (09:23)
[2022-08-12] MEDS: BACLOFEN 10 MG TABLET (FP) PO SCH (10:23)
[2022-08-12] MEDS: GABAPENTIN 300 MG CAPSULE PO SCH (10:23)
[2022-08-12] MEDS: APIXABAN 5 MG TABLET PO SCH (10:23)
[2022-08-12] MEDS: CEFTRIAXONE 1 GM in DEXTROSE 5%-WATER - 50 ML IVPB SCH (10:29)
[2022-08-12] MEDS: AZITHROMYCIN IVPB 250 MG in DEXTROSE 5%-WATER - 250 ML IVPB SCH (10:29)
[2022-08-12] MEDS: NYSTATIN POWDER 100,000 UNITS/GM - 15 GM TOPICAL POWDER TP SCH (10:29)
[2022-08-12 11:49] LABS: BASO % 0.4 % (0-2.0); EOS % 2.2 % (0-4.5); HEMATOCRIT 42.2 % (35.4-49); HEMOGLOBIN 13.6 GM/dL (11.7-16.9); LYMPH % 28.7 % (8-40); MCH 27.2 pg (25.7-33.7); MCHC 32.2 g/dl (32.0-35.9); MEAN CELL VOLUME 84.6 fl (80-96); MEAN PLT VOLUME 7.8 fl (7.5-11.1); MONO % 9.7 % (3.8-10.2); PLATELET COUNT 309 10^3/uL (134-434); RBC 4.99 M/mm3 (4.00-5.60); RDW 16.1 % (11.9-15.9); WHITE BLOOD COUNT 9.3 K/mm3 (4.0-10.0)
[2022-08-12] MEDS ORDERED: CEFUROXIME AXETIL 500 MG TABLET PO SCH (14:00)
[2022-08-12 15:32] VITALS: RESP 18
[2022-08-12 15:34] VITALS: BP 135/84; PULSE 92; TEMP 98.8
[2022-08-12] MEDS ORDERED: AMOX TR/POT CLAV 875MG/125MG TABLETS (FP) PO SCH ×3 (17:30)
== END 2022-08-12 17:30 | DRG 871 ==
LOC: JER 10:57 → JERBED 20:46 → J4W 08-09 18:44 → J8W 08-10 19:54
PROVIDERS: ADMIT Internal Medicine; ATTEND Internal Medicine
DX: A41.9 Sepsis, unspecified organism (principal); J18.9 Pneumonia, unspecified organism; N17.9 Acute kidney failure, unspecified; E87.20 Acidosis, unspecified; I69.354 Hemiplegia and hemiparesis following cerebral infarction affecting left non-dominant side; E11.51 Type 2 diabetes mellitus with diabetic peripheral angiopathy without gangrene; E11.65 Type 2 diabetes mellitus with hyperglycemia; R74.01 Elevation of levels of liver transaminase levels; N40.0 Benign prostatic hyperplasia without lower urinary tract symptoms; E03.9 Hypothyroidism, unspecified; I48.91 Unspecified atrial fibrillation; Z79.01 Long term (current) use of anticoagulants; Z79.4 Long term (current) use of insulin; Z89.612 Acquired absence of left leg above knee; Z89.611 Acquired absence of right leg above knee; E11.22 Type 2 diabetes mellitus with diabetic chronic kidney disease; I12.9 Hypertensive chronic kidney disease with stage 1 through stage 4 chronic kidney disease, or unspecified chronic kidney disease; N18.30 Chronic kidney disease, stage 3 unspecified
CPT/HCPCS: 0241U-QW; 36415; 70450-TC; 71045-TC-FY; 80048; 80053; 81003; 82010; 82803; 82962; 83036; 83605; 83735; 84100; 84443; 84484; 85025; 85610; 85730; 86140; 86850; 86900; 86901; 87040; 87070; 87077; 87086; 87205; 87899; 90677; 93005; 93010; 99285-25; J0475

== ENCOUNTER 2022-08-13 21:58 | Inpatient (IN) | payer OTHER ==
[2022-08-13 23:00] LABS: BASO % 0.7 % (0-2.0); EOS % 0.8 % (0-4.5); HEMATOCRIT 44.3 % (35.4-49); HEMOGLOBIN 14.2 GM/dL (11.7-16.9); LYMPH % 19.9 % (8-40); MCH 27.2 pg (25.7-33.7); MEAN CELL VOLUME 85.2 fl (80-96); MEAN PLT VOLUME 8.1 fl (7.5-11.1); MONO % 7.8 % (3.8-10.2); NEUT % 70.8 % (42.8-82.8); PLATELET COUNT 352 10^3/uL (134-434); RDW 16.3 % (11.9-15.9); VENOUS BASE EXCESS -2.8 mmol/L (-2-2); VENOUS O2 SATURATION 31.4 % (70-80); VENOUS PCO2 49.7 mmHg (38-52); VENOUS PH 7.303 (7.310-7.410); WHITE BLOOD COUNT 14.1 K/mm3 (4.0-10.0)
[2022-08-13 23:20] LABS: CHLORIDE 99 mmol/L (98-107); SODIUM 131 mmol/L (136-145)
[2022-08-13 23:23] LABS: ALBUMIN 3.1 g/dl (3.4-5.0); BLOOD UREA NITROGEN 19.3 mg/dL (7-18); CALCIUM 9.8 mg/dL (8.5-10.1); CO2 23 mmol/L (21-32); GLUCOSE,RANDOM 389 mg/dL (74-106); LIPASE 82 U/L (73-393); MAGNESIUM 2.3 mg/dL (1.8-2.4)
[2022-08-13] MEDS ORDERED: LACTATED RINGERS SOLUTION 1000 ML INFUS.BAG IV ONE ×2 (23:25→23:46)
[2022-08-13] MEDS ORDERED: NALOXONE HCL 0.4 MG/ML VIAL ONE (23:25)
[2022-08-13 23:26] LABS: CREATININE 2.2 mg/dL (0.55-1.3); SGOT/AST 111 U/L (15-37)
[2022-08-13] MEDS ORDERED: NALOXONE HCL 0.4 MG/ML VIAL IVPUSH ONE (23:26)
[2022-08-13 23:28] LABS: TOT PROT 8.6 g/dl (6.4-8.2)
[2022-08-13 23:29] LABS: ALK PHOS 159 U/L (45-117)
[2022-08-13 23:45] LABS: LACTIC ACID 3.5 mmol/L (0.4-2.0)
[2022-08-13] MEDS ORDERED: VANCOMYCIN 1 GM in D5W (PRE-DOCKED) 1,000 MG/250 ML IVPB ONE (23:46)
[2022-08-13] MEDS ORDERED: PIPERACILLIN/TAZOB 4.5 GM 4.5 GM in DEXTROSE 5%-WATER 100 ML IVPB ONE (23:46)
[2022-08-13] MEDS ORDERED: VANCOMYCIN/WATER FOR INJ (PEG) 1,000 MG/200 ML BAG IVPB ONE (23:52)
[2022-08-14 00:23] LABS: ANION GAP 10 MMOL/L (8-16); BILIRUBIN,TOTAL 0.4 mg/dL (0.2-1); SGPT/ALT 60 U/L (13-61)
[2022-08-14] MEDS ORDERED: LIDOCAINE HCL 2% JELLY 6 ML TP ONE (00:34)
[2022-08-14] MEDS ORDERED: LACTATED RINGERS SOLUTION 1000 ML INFUS.BAG IV ONE (00:35)
[2022-08-14 01:11] LABS: EPI CELLS 12 /uL (0-25.1); HYALINE CASTS 5 /uL (0-3.1); URINE APPEARANCE CLOUDY; URINE BACTERIA 10 /uL (0-1359); URINE BILIRUBIN NEGATIVE (NEGATIVE); URINE COLOR YELLOW; URINE GLUCOSE (UA) 3+ (NEGATIVE); URINE KETONE NEGATIVE (NEGATIVE); URINE LEUK ESTERASE NEGATIVE (NEGATIVE); URINE NITRITE NEGATIVE (NEGATIVE); URINE PROTEIN 3+ (NEGATIVE); URINE RBC 33 /uL (0-23.9); URINE UROBILINOGEN 0.2 mg/dL (0.2-1.0); URINE WBC 20 /uL (0-25.8)
[2022-08-14 01:15] LABS: COCAINE, UR NEGATIVE (NEGATIVE); METHADONE, UR NEGATIVE (NEGATIVE); OPIATES, URI NEGATIVE (NEGATIVE); PHENCYCLIDINE,URINE NEGATIVE (NEGATIVE); URINE AMPHETAMINES NEGATIVE (NEGATIVE); URINE BARBITURATES NEGATIVE (NEGATIVE); URINE BENZODIAZEPINES NEGATIVE (NEGATIVE)
[2022-08-14] MEDS ORDERED: PIPERACILLIN/TAZOB 4.5 GM 4.5 GM/100 ML BAG IVPB ONE (02:04)
[2022-08-14] MEDS ORDERED: DOCUSATE SODIUM 100 MG CAPSULE (FP) PO PRN (02:54)
[2022-08-14] MEDS ORDERED: SODIUM CHLORIDE 1,000 ML IV SCH (03:00)
[2022-08-14 03:33] LABS: BLOOD UREA NITROGEN 18.8 mg/dL (7-18)
[2022-08-14 03:37] LABS: CREATININE 1.8 mg/dL (0.55-1.3)
[2022-08-14 04:04] LABS: LACTIC ACID 4.7 mmol/L (0.4-2.0)
[2022-08-14 04:28] LABS: INR 1.52 (0.83-1.09); PROTHROMBIN TIME (PATIENT) 17.5 SEC (9.7-13.0)
[2022-08-14] MEDS ORDERED: INSULIN (NOVOLOG) ASPART 100 UNITS/ML 10ML VIAL SQ ONE (04:39)
[2022-08-14] MEDS ORDERED: SODIUM CHLORIDE 1,000 ML IV STA (04:39)
[2022-08-14 05:33] LABS: LACTIC ACID 4.4 mmol/L (0.4-2.0)
[2022-08-14 06:27] LABS: BASO % 0.8 % (0-2.0); EOS % 1.5 % (0-4.5); HEMOGLOBIN 12.5 GM/dL (11.7-16.9); LYMPH % 27.5 % (8-40); MCH 27.4 pg (25.7-33.7); MCHC 32.1 g/dl (32.0-35.9); MEAN CELL VOLUME 85.3 fl (80-96); MEAN PLT VOLUME 7.5 fl (7.5-11.1); MONO % 8.1 % (3.8-10.2); NEUT % 62.1 % (42.8-82.8); PLATELET COUNT 320 10^3/uL (134-434); RBC 4.57 M/mm3 (4.00-5.60); RDW 16.1 % (11.9-15.9); WHITE BLOOD COUNT 12.1 K/mm3 (4.0-10.0)
[2022-08-14 06:38] LABS: VENOUS BASE EXCESS -5.4 mmol/L (-2-2); VENOUS O2 SATURATION 80.8 % (70-80); VENOUS PCO2 41.9 mmHg (38-52); VENOUS PH 7.31 (7.310-7.410)
[2022-08-14 06:52] LABS: CALCIUM 8.9 mg/dL (8.5-10.1)
[2022-08-14 06:53] LABS: BLOOD UREA NITROGEN 18.4 mg/dL (7-18)
[2022-08-14 06:56] LABS: CREATININE 1.8 mg/dL (0.55-1.3)
[2022-08-14] MEDS ORDERED: PIPERACILLIN/TAZOB 4.5 GM 4.5 GM in DEXTROSE 5%-WATER 100 ML IVPB SCH (09:00)
[2022-08-14] MEDS ORDERED: VANCOMYCIN PREMIX 1.5 GM 1,500 MG/300 ML BAG IVPB SCH (09:30)
[2022-08-14] MEDS ORDERED: LEVOTHYROXINE NA 25 MCG TABLET (FP) PO SCH (10:00)
[2022-08-14] MEDS ORDERED: VANCOMYCIN HCL 1,500 MG in DEXTROSE 5%-WATER - 250 ML IVPB SCH (10:00)
[2022-08-14 11:43] VITALS: BMI 29.6
[2022-08-14 11:49] LABS: LACTIC ACID 2.4 mmol/L (0.4-2.0)
[2022-08-14] MEDS: INSULIN SLIDING SCALE (NOVOLOG) 1 VIAL SQ SCH ×2 (12:44→17:20)
[2022-08-14] MEDS: APIXABAN 5 MG TABLET PO SCH ×2 (12:46→21:54)
[2022-08-14] MEDS: SODIUM CHLORIDE 1,000 ML IV SCH (12:47)
[2022-08-14] MEDS ORDERED: HEPARIN NA (PORCINE) 5,000 UNITS/ML 1ML VIAL SQ SCH (14:00)
[2022-08-14] MEDS: AZITHROMYCIN 250 MG TABLET PO SCH (17:07)
[2022-08-14] MEDS: PIPERACILLIN/TAZOB 3.375 GM 3.375 GM in DEXTROSE 5%-WATER - 50 ML IVPB SCH (17:24)
[2022-08-14 19:07] LABS: EPI CELLS 3 /uL (0-25.1); HYALINE CASTS 5 /uL (0-3.1); URINE APPEARANCE TURBID; URINE BACTERIA 15 /uL (0-1359); URINE BILIRUBIN NEGATIVE (NEGATIVE); URINE COLOR YELLOW; URINE GLUCOSE (UA) 3+ (NEGATIVE); URINE KETONE NEGATIVE (NEGATIVE); URINE LEUK ESTERASE NEGATIVE (NEGATIVE); URINE NITRITE NEGATIVE (NEGATIVE); URINE PROTEIN 2+ (NEGATIVE); URINE RBC 2046 /uL (0-23.9); URINE UROBILINOGEN 0.2 mg/dL (0.2-1.0); URINE WBC 36 /uL (0-25.8)
[2022-08-15] MEDS: PIPERACILLIN/TAZOB 3.375 GM 3.375 GM in DEXTROSE 5%-WATER - 50 ML IVPB SCH ×3 (02:58→17:22)
[2022-08-15] MEDS: INSULIN SLIDING SCALE (NOVOLOG) 1 VIAL SQ SCH ×3 (06:03→16:36)
[2022-08-15] MEDS: LEVOTHYROXINE NA 25 MCG TABLET (FP) PO SCH (09:19)
[2022-08-15] MEDS: LOSARTAN POTASSIUM 25 MG TABLET PO SCH (09:19)
[2022-08-15] MEDS: SODIUM CHLORIDE 1,000 ML IV SCH (09:19)
[2022-08-15] MEDS: AZITHROMYCIN 250 MG TABLET PO SCH (09:19)
[2022-08-15] MEDS: APIXABAN 5 MG TABLET PO SCH ×2 (09:19→21:24)
[2022-08-15 09:21] LABS: BASO % 0.7 % (0-2.0); EOS % 2.3 % (0-4.5); HEMATOCRIT 37.7 % (35.4-49); HEMOGLOBIN 12.1 GM/dL (11.7-16.9); LYMPH % 36.1 % (8-40); MCH 27.4 pg (25.7-33.7); MCHC 32.1 g/dl (32.0-35.9); MEAN CELL VOLUME 85.5 fl (80-96); MEAN PLT VOLUME 7.6 fl (7.5-11.1); MONO % 6.5 % (3.8-10.2); NEUT % 54.4 % (42.8-82.8); PLATELET COUNT 342 10^3/uL (134-434); RBC 4.41 M/mm3 (4.00-5.60); RDW 15.9 % (11.9-15.9); WHITE BLOOD COUNT 8.9 K/mm3 (4.0-10.0)
[2022-08-15 09:42] LABS: CALCIUM 8.7 mg/dL (8.5-10.1)
[2022-08-15 09:43] LABS: ALBUMIN 2.7 g/dl (3.4-5.0); CREATININE 1.1 mg/dL (0.55-1.3)
[2022-08-15 09:45] LABS: BILIRUBIN,TOTAL 0.4 mg/dL (0.2-1); TOT PROT 6.7 g/dl (6.4-8.2)
[2022-08-15] MEDS ORDERED: INSULIN (NOVOLOG) ASPART 100 UNITS/ML 10ML VIAL ONE (11:30)
[2022-08-15] MEDS ORDERED: PIPERACILLIN/TAZOBACTAM 3.375 GM VIAL IVPB ONE ×2 (17:12→17:14)
[2022-08-16] MEDS: PIPERACILLIN/TAZOB 3.375 GM 3.375 GM in DEXTROSE 5%-WATER - 50 ML IVPB SCH ×2 (02:00→10:05)
[2022-08-16] MEDS: INSULIN SLIDING SCALE (NOVOLOG) 1 VIAL SQ SCH ×3 (06:52→17:13)
[2022-08-16] MEDS: LEVOTHYROXINE NA 25 MCG TABLET (FP) PO SCH (06:53)
[2022-08-16 09:50] LABS: BASO % 0.8 % (0-2.0); HEMATOCRIT 37.8 % (35.4-49); HEMOGLOBIN 12.6 GM/dL (11.7-16.9); LYMPH % 35.4 % (8-40); MCH 28.2 pg (25.7-33.7); MCHC 33.2 g/dl (32.0-35.9); MEAN CELL VOLUME 84.8 fl (80-96); MEAN PLT VOLUME 7.2 fl (7.5-11.1); MONO % 7.7 % (3.8-10.2); NEUT % 54.1 % (42.8-82.8); PLATELET COUNT 359 10^3/uL (134-434); RBC 4.46 M/mm3 (4.00-5.60); RDW 15.7 % (11.9-15.9); WHITE BLOOD COUNT 7.7 K/mm3 (4.0-10.0)
[2022-08-16] MEDS: LOSARTAN POTASSIUM 25 MG TABLET PO SCH (10:03)
[2022-08-16] MEDS: AZITHROMYCIN 250 MG TABLET PO SCH (10:04)
[2022-08-16] MEDS: APIXABAN 5 MG TABLET PO SCH ×2 (10:04→21:53)
[2022-08-16 10:10] LABS: BLOOD UREA NITROGEN 11.5 mg/dL (7-18); CALCIUM 8.9 mg/dL (8.5-10.1)
[2022-08-16 10:14] LABS: CREATININE 1.1 mg/dL (0.55-1.3)
[2022-08-16] MEDS: AMOX TR/POT CLAV 500MG/125MG TABLETS (FP) PO SCH (17:14)
[2022-08-17] MEDS: LEVOTHYROXINE NA 25 MCG TABLET (FP) PO SCH (06:27)
[2022-08-17] MEDS: INSULIN SLIDING SCALE (NOVOLOG) 1 VIAL SQ SCH ×3 (06:27→17:04)
[2022-08-17] MEDS: AMOX TR/POT CLAV 500MG/125MG TABLETS (FP) PO SCH ×2 (08:55→17:11)
[2022-08-17] MEDS: AZITHROMYCIN 250 MG TABLET PO SCH (08:59)
[2022-08-17] MEDS: LOSARTAN POTASSIUM 25 MG TABLET PO SCH (08:59)
[2022-08-17] MEDS: APIXABAN 5 MG TABLET PO SCH ×2 (09:00→21:39)
[2022-08-17 09:25] LABS: BASO % 1.1 % (0-2.0); EOS % 2.4 % (0-4.5); HEMATOCRIT 40.7 % (35.4-49); HEMOGLOBIN 13.1 GM/dL (11.7-16.9); LYMPH % 33.5 % (8-40); MCH 27.6 pg (25.7-33.7); MCHC 32.3 g/dl (32.0-35.9); MEAN CELL VOLUME 85.6 fl (80-96); MONO % 6.7 % (3.8-10.2); NEUT % 56.3 % (42.8-82.8); PLATELET COUNT 380 10^3/uL (134-434); RBC 4.75 M/mm3 (4.00-5.60); RDW 16.2 % (11.9-15.9); WHITE BLOOD COUNT 9.4 K/mm3 (4.0-10.0)
[2022-08-17 10:41] LABS: BLOOD UREA NITROGEN 13.7 mg/dL (7-18); CALCIUM 9.4 mg/dL (8.5-10.1)
[2022-08-17 10:45] LABS: CREATININE 0.9 mg/dL (0.55-1.3)
[2022-08-17] MEDS ORDERED: INSULIN (NOVOLOG) ASPART 100 UNITS/ML 10ML VIAL ONE (20:38)
[2022-08-18] MEDS: INSULIN SLIDING SCALE (NOVOLOG) 1 VIAL SQ SCH ×2 (06:26→11:29)
[2022-08-18] MEDS: LEVOTHYROXINE NA 25 MCG TABLET (FP) PO SCH (06:26)
[2022-08-18] MEDS: AMOX TR/POT CLAV 500MG/125MG TABLETS (FP) PO SCH (08:46)
[2022-08-18] MEDS: AZITHROMYCIN 250 MG TABLET PO SCH (09:35)
[2022-08-18] MEDS: APIXABAN 5 MG TABLET PO SCH (09:35)
[2022-08-18] MEDS: LOSARTAN POTASSIUM 25 MG TABLET PO SCH (09:35)
[2022-08-18] MEDS ORDERED: INSULIN (NOVOLOG) ASPART 100 UNITS/ML 10ML VIAL ONE (11:25)
[2022-08-18 12:05] VITALS: RESP 18
[2022-08-18 14:44] VITALS: BP 113/74; PULSE 76; TEMP 98.5
== END 2022-08-18 15:56 | disposition home or self-care (01) | DRG 193 ==
LOC: JER 21:58 → JERBED 08-14 01:45 → J6S 08-14 09:16
PROVIDERS: ADMIT Internal Medicine; ATTEND Internal Medicine
DX: J18.9 Pneumonia, unspecified organism (principal); G92.8 Other toxic encephalopathy; E87.1 Hypo-osmolality and hyponatremia; E87.20 Acidosis, unspecified; N17.9 Acute kidney failure, unspecified; E78.5 Hyperlipidemia, unspecified; I48.91 Unspecified atrial fibrillation; I12.9 Hypertensive chronic kidney disease with stage 1 through stage 4 chronic kidney disease, or unspecified chronic kidney disease; E11.51 Type 2 diabetes mellitus with diabetic peripheral angiopathy without gangrene; E03.9 Hypothyroidism, unspecified; E11.65 Type 2 diabetes mellitus with hyperglycemia; Z89.612 Acquired absence of left leg above knee; Z89.611 Acquired absence of right leg above knee; Z79.4 Long term (current) use of insulin; E11.22 Type 2 diabetes mellitus with diabetic chronic kidney disease; N18.9 Chronic kidney disease, unspecified; E86.0 Dehydration
CPT/HCPCS: 0241U-QW; 36415; 70450-TC; 71045-TC-FY; 71250-TC; 76775-TC; 80048; 80053; 80307; 81003; 82010; 82436; 82570; 82803; 82962; 83605; 83690; 83735; 84133; 84156; 84300; 84443; 84484; 85025; 85610; 85730; 87040; 87086; 87899; 93005; 93010; 93306-TC; 94010; 99285-25

== ENCOUNTER 2023-04-07 13:25 | Emergency (ER) | payer OTHER ==
[2023-04-07 13:50] VITALS: BP 134/79; PULSE 78; RESP 16; TEMP 97.9; BMI 32.1
== END 2023-04-07 15:10 | disposition home or self-care (01) ==
LOC: JER 13:25
DX: T16.1XXA Foreign body in right ear, initial encounter (principal)
CPT/HCPCS: 99283-25

== ENCOUNTER 2023-06-04 07:21 | Emergency (ER) | payer OTHER ==
[2023-06-04 07:44] VITALS: TEMP 97.9; BMI 32.8
[2023-06-04] MEDS ORDERED: ACETAMINOPHEN 500 MG TABLET (FP) PO ONE (07:44)
[2023-06-04] MEDS ORDERED: METHOCARBAMOL 500 MG TABLET PO ONE (07:44)
[2023-06-04] MEDS ORDERED: METHOCARBAMOL 500 MG TABLET ONE (08:09)
[2023-06-04] MEDS ORDERED: ACETAMINOPHEN 500 MG TABLET (FP) ONE (08:11)
[2023-06-04 09:04] LABS: EPI CELLS 2 /uL (0-25.1); HYALINE CASTS 0 /uL (0-3.1); PH,URINE 5.5 (5.0-8.0); URINE APPEARANCE CLEAR; URINE BACTERIA 1 /uL (0-1359); URINE BILIRUBIN NEGATIVE (NEGATIVE); URINE COLOR YELLOW; URINE GLUCOSE (UA) NEGATIVE (NEGATIVE); URINE KETONE NEGATIVE (NEGATIVE); URINE LEUK ESTERASE NEGATIVE (NEGATIVE); URINE NITRITE NEGATIVE (NEGATIVE); URINE PROTEIN 3+ (NEGATIVE); URINE RBC 8 /uL (0-23.9); URINE UROBILINOGEN 0.2 mg/dL (0.2-1.0); URINE WBC 7 /uL (0-25.8)
[2023-06-04 10:37] LABS: BASO % 0.8 % (0-2.0); EOS % 4.4 % (0-4.5); HEMATOCRIT 40.3 % (35.4-49); HEMOGLOBIN 13.5 GM/dL (11.7-16.9); LYMPH % 41.6 % (8-40); MCH 28.3 pg (25.7-33.7); MCHC 33.4 g/dl (32.0-35.9); MEAN CELL VOLUME 84.9 fl (80-96); MEAN PLT VOLUME 7.5 fl (7.5-11.1); MONO % 6.2 % (3.8-10.2); PLATELET COUNT 268 10^3/uL (134-434); RBC 4.75 M/mm3 (4.00-5.60); WHITE BLOOD COUNT 9.1 K/mm3 (4.0-10.0)
[2023-06-04 10:40] LABS: POTASSIUM 4.2 mmol/L (3.5-5.1)
[2023-06-04 10:41] LABS: CALCIUM 9.1 mg/dL (8.5-10.1)
[2023-06-04 10:42] LABS: ALBUMIN 3.5 g/dl (3.4-5.0); BLOOD UREA NITROGEN 10.1 mg/dL (7-18)
[2023-06-04 10:43] VITALS: RESP 19
[2023-06-04 10:47] LABS: BILIRUBIN,TOTAL 0.4 mg/dL (0.2-1); TOT PROT 7.3 g/dl (6.4-8.2)
[2023-06-04 13:26] VITALS: BP 148/85; PULSE 58
== END 2023-06-04 13:29 | disposition home or self-care (01) ==
LOC: JER 07:21
DX: M54.50 Low back pain, unspecified (principal)
CPT/HCPCS: 36415; 80053; 81003; 82962; 85025; 87086; 99283-25

== ENCOUNTER 2023-08-22 22:16 | Emergency (ER) | payer OTHER ==
[2023-08-22 22:41] VITALS: BP 105/63; PULSE 71; RESP 18; TEMP 98.2; BMI 32.1
== END 2023-08-23 05:30 ==
LOC: JER 22:16
DX: E11.65 Type 2 diabetes mellitus with hyperglycemia (principal)
CPT/HCPCS: 82962; 99283-25

== ENCOUNTER 2025-04-28 09:37 | Emergency (ER) | payer OTHER ==
[2025-04-28 10:08] VITALS: BMI 31.4
[2025-04-28 11:09] LABS: URINE APPEARANCE CLEAR; URINE BILIRUBIN NEGATIVE (NEGATIVE); URINE COLOR YELLOW; URINE GLUCOSE (UA) NEGATIVE (NEGATIVE); URINE KETONE NEGATIVE (NEGATIVE)
[2025-04-28 11:10] LABS: URINE LEUK ESTERASE NEGATIVE (NEGATIVE); URINE NITRITE NEGATIVE (NEGATIVE); URINE PROTEIN 3+ (NEGATIVE); URINE UROBILINOGEN 0.2 mg/dL (0.2-1.0)
[2025-04-28 11:21] LABS: ABSOLUTE IMMATURE GRANULOCYTES 0.03 x10^3/uL (0.0-0.031); BASOPHILS # 0.05 x10^3/uL (0.01-0.08); EOSINOPHIL % 5.2 % (0.8-7.0); EOSINOPHILS # 0.53 x10^3/uL (0.04-0.54); MCHC 31.9 g/dl (32.3-36.5); MEAN CELL VOLUME 89.3 fl (79.0-92.2); MEAN PLT VOLUME 8.9 fl (9.4-12.4); MONOCYTE # 0.68 x10^3/uL (0.30-0.82); MONOCYTE % 6.7 % (5.3-12.2); RDW 13.5 % (12.2-16.1)
[2025-04-28] MEDS: SODIUM CHLORIDE 0.9% 500 ML INFUS.BAG IV ONE (11:35)
[2025-04-28 12:04] LABS: HCV DIAGNOSTIC IN-HOUSE W/RFLX NON-REACTIVE (NONREACTIVE); HIV INTERPRETATION NEGATIVE (NEGATIVE)
[2025-04-28 12:20] LABS: GLUCOSE,RANDOM 166.0 mg/dL (74-106)
[2025-04-28 12:21] LABS: TOT PROT 7.5 g/dl (6.4-8.2)
[2025-04-28 12:22] LABS: CO2 24.0 mmol/L (21-32)
[2025-04-28 12:23] LABS: ALK PHOS 150.0 U/L (40-150)
[2025-04-28 12:26] LABS: CREATININE 1.2 mg/dL (0.55-1.3); SGOT/AST 42.0 U/L (5-34); SGPT/ALT 45.0 U/L (0-55)
[2025-04-28 14:22] VITALS: BP 145/84; PULSE 95; RESP 19; TEMP 97.9
== END 2025-04-28 14:22 | disposition home or self-care (01) ==
LOC: JER 09:37
DX: R06.02 Shortness of breath (principal); R53.1 Weakness
CPT/HCPCS: 36415; 71045-TC-FY; 80053; 81003; 83735; 84484; 85025; 86803; 87086; 87389; 93005; 93010; 99285-25